=== PATIENT | male | born 1970 | race Caucasian/White ===

== ENCOUNTER 2018-12-26 14:53 | Inpatient (IN) ==
[2018-12-26] MEDS ORDERED: ROBAXIN PO PRN (15:54)
[2018-12-26] MEDS ORDERED: DULCOLAX PR PRN (15:54)
[2018-12-26] MEDS ORDERED: MAALOX PLUS LIQUID PO PRN (15:54)
[2018-12-26] MEDS ORDERED: BENTYL PO PRN (15:54)
[2018-12-26] MEDS ORDERED: PHENOBARBITAL IV PRN (15:54)
[2018-12-26] MEDS ORDERED: D5W 1,000 ML IV PRN (15:54)
[2018-12-26] MEDS ORDERED: SINEMET 25/100 PO PRN (15:54)
[2018-12-26] MEDS ORDERED: ZOFRAN ODT PO PRN (15:54)
[2018-12-26] MEDS ORDERED: DESYREL PO PRN (15:54)
[2018-12-26] MEDS ORDERED: ZOFRAN IV PRN (15:54)
[2018-12-26] MEDS ORDERED: SENOKOT PO PRN (15:54)
[2018-12-26] MEDS ORDERED: TUBERSOL ID ONE (15:54)
[2018-12-26] MEDS ORDERED: IMODIUM PO PRN (15:54)
[2018-12-26] MEDS ORDERED: MOTRIN PO PRN (15:54)
[2018-12-26] MEDS ORDERED: SUBOXONE 2 MG/0.5 MG FILM SL SCH (16:00)
[2018-12-26 16:58] LABS: UR AMPHETAMINES QUAL NONE DETECTED (NONE DETECT); UR BARBITUATES QUAL NONE DETECTED (NONE DETECT); UR BENZODIAZEPIN QUAL NONE DETECTED (NONE DETECT); UR CANNABINOIDS QUAL NONE DETECTED (NONE DETECT); UR COCAINE QUAL NONE DETECTED (NONE DETECT); UR METHADONE QUAL NONE DETECTED (NONE DETECT); UR METHAMPHETAMINE QUAL NONE DETECTED (NONE DETECT); UR OPIATES QUAL NONE DETECTED (NONE DETECT); UR OXYCODONE QUAL PRESUMPTIVE POSITIVE (NONE DETECT); UR PCP QUAL NONE DETECTED (NONE DETECT); UR PROPOXYPHENE QUAL NONE DETECTED (NONE DETECT); UR TCA QUAL NONE DETECTED (NONE DETECT)
[2018-12-26 17:09] LABS: URINE SOURCE VOIDED
[2018-12-26 17:16] LABS: BILIRUBIN URINE NEGATIVE (NEGATIVE); BLOOD URINE NEGATIVE (NEGATIVE); CLARITY SL. CLOUDY (CLEAR); COLOR YELLOW; GLUCOSE URINE NEGATIVE (NEGATIVE); KETONE URINE 1+(Small) mg/dL (NEGATIVE); LEUKOCYTES URINE 1+ (NEGATIVE); NITRITE URINE NEGATIVE (NEGATIVE); PH URINE 6.5; PROTEIN URINE 1+(30 mg/dL) mg/dL (NEGATIVE); UROBILINOGEN URINE 1 mg/dL
[2018-12-26 17:29] LABS: URINE BACTERIA NEGATIVE /HFP; URINE CAST NONE SEEN /LPF; URINE CRYSTAL NONE SEEN /HPF; URINE EPITHELIAL CELLS >10 /HPF (<10); URINE RBC <10 /HPF (<10); URINE WBC <10 /HPF (<10); URINE YEAST NONE SEEN /HPF
[2018-12-26 17:55] LABS: HEMATOCRIT 43.9 % (42.0-52.0); HEMOGLOBIN 14.5 g/dL (14.0-18.0); MCH 31.9 PG (27-31); MCV 96.7 FL (81-99); MPV 9.2 FL (7.4-10.4); RBC 4.54 XMIL (4.7-6.1); RDW 14.6 % (11.5-14.5); WBC 8.15 X1000 (4.8-10.8)
[2018-12-26] MEDS: NICODERM PATCH TD PRN (18:08)
[2018-12-26] MEDS: TYLENOL PO PRN (18:09)
[2018-12-26 18:12] LABS: INR 0.83; PROTIME 11.8 Seconds (11.0-16.0)
[2018-12-26] MEDS: ATARAX PO PRN (18:23)
[2018-12-26 18:25] LABS: AMYLASE 51 U/L (20-200); LIPASE 60 U/L (13-60)
[2018-12-26 18:44] LABS: AGAP 10; ALBUMIN 3.4 g/dL (3.5-5.0); ALKALINE PHOSPHATASE 117 U/L (32-122); BUN 11 mg/dL (8-22); CALCIUM 8.4 mg/dL (8.8-10.2); CHLORIDE 107 mmol/L (98-107); COSMO 288; ESTIMATED GFR > 60; GLUCOSE 139 mg/dL (70-104); GOT 18 U/L (10-34); GPT 24 U/L (10-44); POTASSIUM 4.2 mmol/L (3.5-5.1); SODIUM 144 mmol/L (136-145); TCO2 27 mmol/L (25-35); TOTAL BILIRUBIN < 0.15 mg/dL (0.20-1.00); TOTAL PROTEIN 6.4 g/dL (6.3-8.3)
[2018-12-26] MEDS: LIBRIUM PO PRN (22:01)
[2018-12-26] MEDS: SEROQUEL PO PRN (22:01)
--- NOTE | 2018-12-27 00:08 | HISTORY AND PHYSICAL ---
CHIEF COMPLAINT: Nausea, vomiting. HISTORY OF PRESENT ILLNESS: Patient is a 48-year-old male who presented to [facility] as a transfer secondary to nausea, vomiting. States he has been having some abdominal pain, shaking chills. Denies any fevers. States overall he does not feel well. SOCIAL HISTORY: Patient is 48. He is on disability. He is single, lives at home in [place]. Son is currently in foster care as [employer] is involved due to patient's accusations of opiate abuse. PAST MEDICAL HISTORY: He has had recent ulcer and osteomyelitis right heel due to an open wound, he has had a heart attack x2, history of heart disease with stenting, 4 back surgeries, chronic anxiety/depression, history of seizures, takes Keppra. MEDICATIONS: Oxycodone 10 mg, Ranexa 500, Zoloft 100, Lipitor 40, amantadine 100 at bedtime, Coreg 3.125 twice a day, Keppra 1000 b.i.d., Lyrica 150 b.i.d. for fibromyalgia, Lasix 40, Cymbalta 60, Wellbutrin 150, Flomax 0.4 at bedtime, Plavix 75, Zofran 4. ALLERGIES: Vinyl tape. REVIEW OF SYSTEMS: Patient TAMRA I score is 11 secondary to nausea, vomiting, abdominal pain, diarrhea, myalgias, frequent chills, frequent changes in temperature, restlessness, frequent sweating. The patient denies any headaches, blurred vision, change in vision. Denies any focalized numbness, tingling, weakness. Denies any diarrhea, constipation, or melena hematochezia. SOCIAL HISTORY: Substance abuse history. As noted, the patient's son currently is in foster care due to R and accusations of overuse. States he is currently taking at least 3 to 4 oxycodone pills a day. Started at age 35 due to multiple surgeries. Started smoking at age 21. Currently smokes pack a day. FAMILY HISTORY: Noncontributory. PHYSICAL EXAMINATION: GENERAL: Patient is alert, oriented. He is in no current respiratory distress. VITAL SIGNS: He is afebrile. Pulse in the 80s. Blood pressure is stable. NECK: Supple. No JVD. CARDIOVASCULAR: Regular rate. No murmurs. CHEST: Clear, nonlabored. ABDOMEN: Soft, nondistended, nontender. EXTREMITIES: Moves all extremities. ASSESSMENT: 1. Nausea, vomiting. 2. Abdominal pain. 3. Myalgias. 4. Paresthesias. 5. Paroxysmal sweating. 6. Opiate abuse, withdrawal, and stabilization. PLAN: We will admit the patient hospital, begin counseling. Further orders as needed. cc: Alex Ambrosio MD
[2018-12-27] MEDS: PROTONIX PO SCH (06:02)
[2018-12-27] MEDS ORDERED: ZOFRAN PO PRN (06:44)
[2018-12-27] MEDS ORDERED: ZOFRAN ODT PO PRN (07:11)
[2018-12-27] MEDS ORDERED: SUBOXONE 2 MG/0.5 MG FILM SL SCH (08:00)
[2018-12-27] MEDS: THERA M PLUS PO SCH (09:15)
[2018-12-27] MEDS: LASIX PO SCH (09:15)
[2018-12-27] MEDS: SUBOXONE 8 MG/2 MG FILM SL SCH ×2 (09:15→20:05)
[2018-12-27] MEDS: CYMBALTA PO SCH (09:15)
[2018-12-27] MEDS: RANEXA PO SCH ×2 (09:15→20:03)
[2018-12-27] MEDS: LYRICA PO SCH ×2 (09:15→20:04)
[2018-12-27] MEDS: FOLIC ACID PO SCH (09:16)
[2018-12-27] MEDS: PLAVIX PO SCH (09:16)
[2018-12-27] MEDS: VITAMIN B-1 PO SCH (09:16)
[2018-12-27] MEDS: WELLBUTRIN SR PO SCH (09:16)
[2018-12-27] MEDS: COREG PO SCH ×2 (09:16→20:04)
[2018-12-27] MEDS: KEPPRA PO SCH ×2 (09:16→20:05)
[2018-12-27] MEDS: ZOLOFT PO SCH (09:17)
[2018-12-27] MEDS: ATARAX PO PRN (12:07)
[2018-12-27] MEDS: LIBRIUM PO PRN (14:33)
[2018-12-27] MEDS: TYLENOL PO PRN (16:26)
[2018-12-27] MEDS: SEROQUEL PO PRN (20:04)
[2018-12-27] MEDS: NICODERM PATCH TD PRN (20:05)
[2018-12-27] MEDS ORDERED: SYMMETREL PO SCH (21:00)
[2018-12-27] MEDS ORDERED: LIPITOR PO SCH (21:00)
--- NOTE | 2018-12-27 22:28 | PROGRESS NOTE ---
DATE: 12/27/2018 SUBJECTIVE: Patient states that he does not feel as though he has a problem with opiate abuse, although does admit that he has been overusing his medication. States that he feels a little bit better with Suboxone, although still having muscle aches and myalgias, still does not quite feel back to normal. OBJECTIVE: Vital Signs: Temperature 97.5 degrees, pulse 62, respiratory rate 18, BP 107/59. General: He is awake, alert, oriented. He is in no current respiratory distress although is ill- appearing from his opiate withdrawal symptoms. HEENT: Normocephalic. Neck: Supple. Cardiovascular: Regular rate. No murmurs. Chest: Clear, nonlabored. Abdomen: Soft, nondistended. Extremities: Moves all extremities. ASSESSMENT: 1. Nausea and vomiting. 2. Abdominal pain. 3. Myalgias. 4. Paresthesias. 5. Paroxysmal sweating. 6. Opiate abuse withdrawal and stabilization. 7. Chronic pain. 8. Known coronary artery disease. PLAN: We will continue patient in the hospital. We will increase Suboxone to 8/2 and will follow. Hopefully home over the next day or two. cc: Alex Ambrosio MD
[2018-12-28] MEDS: LIBRIUM PO PRN (02:26)
[2018-12-28] MEDS: PROTONIX PO SCH (06:23)
[2018-12-28 07:58] VITALS: BP 122/79
[2018-12-28] MEDS: KEPPRA PO SCH (08:21)
[2018-12-28] MEDS: THERA M PLUS PO SCH (08:21)
[2018-12-28] MEDS: SUBOXONE 8 MG/2 MG FILM SL SCH (08:21)
[2018-12-28] MEDS: WELLBUTRIN SR PO SCH (08:21)
[2018-12-28] MEDS: RANEXA PO SCH (08:22)
[2018-12-28] MEDS: COREG PO SCH (08:22)
[2018-12-28] MEDS: CYMBALTA PO SCH (08:22)
[2018-12-28] MEDS: VITAMIN B-1 PO SCH (08:22)
[2018-12-28] MEDS: PLAVIX PO SCH (08:22)
[2018-12-28] MEDS: ZOLOFT PO SCH (08:22)
[2018-12-28] MEDS: LYRICA PO SCH (08:22)
[2018-12-28] MEDS: LASIX PO SCH (08:23)
[2018-12-28] MEDS: FOLIC ACID PO SCH (08:23)
[2018-12-28] MEDS: TYLENOL PO PRN (08:32)
== END 2018-12-28 10:03 | disposition home or self-care (01) | DRG 897 ==
LOC: P.DIRADM 14:56 → P.MEDSURG 15:43
PROVIDERS: ADMIT Family Medicine; ATTEND Family Medicine
CPT/HCPCS: 80053; 80104; 80301; 80305; 80307; 80320; 81001; 82055; 82150; 83690; 85027; 85610; 86580; 87088; A9270; G0431; G0434; G0477; G0480; G6040